=== PATIENT | male | born 1950 | race Hispanic/Latino ===

== ENCOUNTER 2017-03-28 22:16 | Emergency (ER) | payer MEDICARE ==
[~2017-03-28] VITALS: Ht 182.9 cm; Wt 95.6 kg
[~2017-03-28 22:16] MED LIST: NAPROSYN500 MG OR
[2017-03-28 23:17] LABS: HEMATOCRIT 42.4 % (39.0-50.0); HEMOGLOBIN 14.7 g/dl (14.0-18.0); IMMATURE GRANULOCYTES 0.7 % (0.0-1.0); MEAN CELL VOLUME 92.8 fL CALC (80.0-100.0); MEAN CORPUSCULAR HGB 32.2 pG CALC (26.0-32.0); MEAN CORPUSCULAR HGB CONC 34.7 g/L CALC (32.0-36.0); NEUT# 4.66 thou/uL (1.82-7.42); RED BLOOD COUNT 4.57 mill/uL (4.70-6.10)
[2017-03-28 23:35] LABS: ALBUMIN 4.1 g/dL (3.2-5.0); ALKALINE PHOSPHATASE 128 u/l (38-126); ANION GAP 14 (6-22 (CALC)); BILIRUBIN, TOTAL 0.5 mg/dL (0.0-1.4); BUN 21 mg/dL (8-23); BUN/CREATININE RATIO 16 (12-20 (CALC)); CALCIUM 9.4 mg/dL (8.4-10.2); CARBON DIOXIDE 29 mmol/l (22-30); CHLORIDE 100 mmol/l (95-108); CREATININE 1.3 mg/dL (0.7-1.3); GFR 55 ML/MIN (>=60 (CALC)); GFR FOR AFR.AMER. > 60 ML/MIN (>=60 (CALC)); GLUCOSE 343 mg/dL (82-115); POTASSIUM 4.6 mmol/l (3.5-5.1); SGOT/AST 36 u/l (19-48); SGPT/ALT 47 u/l (11-66); SODIUM 138 mmol/l (137-146); TOTAL PROTEIN 7.5 g/dL (6.3-8.2)
[2017-03-28 23:47] LABS: MYOGLOBIN 71 ng/mL (0 - 121)
[2017-03-29 00:39] LABS: URINE BILIRUBIN - DIPSTICK NEGATIVE (NEGATIVE); URINE BLOOD DIPSTICK NEGATIVE (NEGATIVE); URINE CLARITY CLEAR; URINE COLOR YELLOW; URINE GLUCOSE - DIPSTICK >=1000 mg/dL (NEGATIVE); URINE KETONE NEGATIVE (NEGATIVE); URINE LEUK ESTERASE NEGATIVE (NEGATIVE); URINE NITRITE - DIPSTICK NEGATIVE (Negative); URINE PROTEIN - DIPSTICK NEGATIVE (NEG-TRACE); URINE UROBILINOGEN - DIPSTICK 0.2 E.U./dL (0.2)
[2017-03-29 00:46] LABS: BARBITURATES NEGATIVE (NEGATIVE); COCAINE NEGATIVE (NEGATIVE); METHADONE NEGATIVE (NEGATIVE); OXCYCODONE NEGATIVE (NEGATIVE); TETRAHYDROCANNABIONOL NEGATIVE (NEGATIVE); TRICYLIC ANTIDEPRESSANTS NEGATIVE (NEGATIVE)
[2017-03-29] MEDS ORDERED: ANTIVERT PO (00:48)
[2017-03-29] MEDS ORDERED: ZOFRAN ODT4 MG PO (00:48)
[2017-03-29 01:12] VITALS: BP 165/70
== END 2017-03-29 01:16 | disposition home or self-care (01) ==
LOC: ED 22:16
PROVIDERS: Emergency Medicine
DX: R42 Dizziness and giddiness (principal); R51 Headache; I10 Essential (primary) hypertension

== ENCOUNTER 2019-10-22 09:11 | Day surgery (SDC) | payer MEDICARE ==
[~2019-10-22] VITALS: Ht 175.3 cm; Wt 97.5 kg
[~2019-10-22 09:11] MED LIST changes: +ANTIVERT PO; +ASPIRIN81 MG PO; +LEVOTHYROXIN150 MCG PO; +LIPITOR20 M1 PO; +LISINOPRIL10 MG PO; +LISINOPRIL20 MG PO; +METFORMIN500 MG PO; +MIRALAX3350 NF PO; +NOVOLOG100 UNIT/M SC; +TRESIBA FL100 UNIT/M SC; +ZOFRAN ODT4 MG PO
[2019-10-22 12:01] VITALS: BP 152/75
== END 2019-10-22 12:15 | disposition home or self-care (01) ==
LOC: ENDO 09:11 → ORM 11:30 → ENDO 12:15
PROVIDERS: ATTEND Surgery
PROC: 0DBE8ZX Excision of Large Intestine, Via Natural or Artificial Opening Endoscopic, Diagnostic (ICD-10-PCS; principal; 2019-10-22)
DX: K59.00 Constipation, unspecified (principal); R14.0 Abdominal distension (gaseous); Z86.010 Personal history of colon polyps

== ENCOUNTER 2019-12-06 | Day surgery (SDC) | payer MEDICARE ==
[2019-12-06] MEDS ORDERED: PERCOCET1 TA4 PO (09:15)
== END 2019-12-06 10:08 ==
PROC: 0VTTXZZ Resection of Prepuce, External Approach (ICD-10-PCS; principal; 2019-12-06)
DX: N47.1 Phimosis (principal); N48.1 Balanitis; I10 Essential (primary) hypertension; E78.5 Hyperlipidemia, unspecified; E11.9 Type 2 diabetes mellitus without complications
CPT/HCPCS: J0131; J1100

== ENCOUNTER 2019-12-14 17:54 | Emergency (ER) | payer MEDICARE ==
[~2019-12-14 17:54] MED LIST changes: +PERCOCET1 TA4 PO
[2019-12-14] MEDS ORDERED: KEFLEX500 M1 PO (18:41)
[2019-12-14 18:52] VITALS: BP 168/80
== END 2019-12-14 18:52 | disposition home or self-care (01) ==
LOC: ED 17:54
DX: I10 Essential (primary) hypertension (principal); T81.41XA Infection following a procedure, superficial incisional surgical site, initial encounter; E11.9 Type 2 diabetes mellitus without complications; Y83.8 Other surgical procedures as the cause of abnormal reaction of the patient, or of later complication, without mention of misadventure at the time of the procedure

== ENCOUNTER 2020-05-04 10:44 | Emergency (ER) | payer MEDICARE ==
[~2020-05-04 10:44] MED LIST changes: +KEFLEX500 M1 PO
[2020-05-04 11:32] LABS: HEMATOCRIT 41.3 % (39.0-50.0); HEMOGLOBIN 14.2 g/dl (14.0-18.0); IMMATURE GRANULOCYTES 0.6 % (0.0-5.0); MEAN CELL VOLUME 90.8 fL CALC (80.0-100.0); MEAN CORPUSCULAR HGB 31.2 pG CALC (26.0-32.0); MEAN CORPUSCULAR HGB CONC 34.4 g/dL CAL (32.0-36.0); NEUT# 6.21 thou/uL (1.82-7.42); RED BLOOD COUNT 4.55 mill/uL (4.70-6.10); RED CELL DISTRI WIDTH 13.2 % (11.5-15.5)
[2020-05-04 11:46] LABS: ALBUMIN 4.3 g/dL (3.2-5.0); ALKALINE PHOSPHATASE 96 u/l (38-126); ANION GAP 15 (6-22 (CALC)); BILIRUBIN, TOTAL 0.7 mg/dL (0.0-1.4); BUN 20 mg/dL (8-23); BUN/CREATININE RATIO 22 (12-20 (CALC)); CARBON DIOXIDE 25 mmol/l (22-30); CHLORIDE 103 mmol/l (95-108); CREATININE 0.9 mg/dL (0.7-1.3); GFR > 60 ML/MIN (>=60 (CALC)); GFR FOR AFR.AMER. > 60 ML/MIN (>=60 (CALC)); POTASSIUM 4.7 mmol/l (3.5-5.1); SGOT/AST 36 u/l (19-48); SODIUM 137 mmol/l (137-146); TOTAL PROTEIN 7.3 g/dL (6.3-8.2)
[2020-05-04 12:07] LABS: ACT PARTIAL THROMBO TIME 30.8 SECONDS (20.0-32.5); PROTHROMBIN TIME 10.5 SECONDS (9.0-12.5)
[2020-05-04 14:30] VITALS: BP 150/81
== END 2020-05-04 14:30 ==
LOC: ED 10:44
DX: S62.614B Displaced fracture of proximal phalanx of right ring finger, initial encounter for open fracture (principal); S61.216A Laceration without foreign body of right little finger without damage to nail, initial encounter; I10 Essential (primary) hypertension; E11.9 Type 2 diabetes mellitus without complications; W20.8XXA Other cause of strike by thrown, projected or falling object, initial encounter; Y92.009 Unspecified place in unspecified non-institutional (private) residence as the place of occurrence of the external cause; Z79.4 Long term (current) use of insulin

== ENCOUNTER 2020-07-31 09:55 | Emergency (ER) | payer MEDICARE ==
[~2020-07-31] VITALS: Ht 175.3 cm; Wt 80.0 kg
[2020-07-31 10:17] LABS: HEMOGLOBIN 14.9 g/dl (14.0-18.0); IMMATURE GRANULOCYTES 0.6 % (0.0-5.0); MEAN CELL VOLUME 93.1 fL CALC (80.0-100.0); MEAN CORPUSCULAR HGB 30.2 pG CALC (26.0-32.0); MEAN CORPUSCULAR HGB CONC 32.4 g/dL CAL (32.0-36.0); NEUT# 6.45 thou/uL (1.82-7.42); RED BLOOD COUNT 4.94 mill/uL (4.70-6.10); RED CELL DISTRI WIDTH 12.8 % (11.5-15.5)
[2020-07-31 10:29] LABS: ALBUMIN 4.7 g/dL (3.2-5.0); ALKALINE PHOSPHATASE 102 u/l (38-126); ANION GAP 17 (6-22 (CALC)); BILIRUBIN, TOTAL 0.7 mg/dL (0.0-1.4); BUN 24 mg/dL (8-23); BUN/CREATININE RATIO 27 (12-20 (CALC)); CARBON DIOXIDE 25 mmol/l (22-30); CHLORIDE 98 mmol/l (95-108); CREATININE 0.9 mg/dL (0.7-1.3); GFR > 60 ML/MIN (>=60 (CALC)); GFR FOR AFR.AMER. > 60 ML/MIN (>=60 (CALC)); POTASSIUM 4.7 mmol/l (3.5-5.1); SGOT/AST 33 u/l (19-48); SODIUM 135 mmol/l (137-146); TOTAL PROTEIN 7.7 g/dL (6.3-8.2)
[2020-07-31 10:35] LABS: PROTHROMBIN TIME 10.1 SECONDS (9.0-12.5)
[2020-07-31 10:43] LABS: MYOGLOBIN 58 ng/mL (0 - 121)
[2020-07-31 10:51] VITALS: BP 126/69
== END 2020-07-31 10:51 | disposition short-term general hospital (02) ==
LOC: ED 09:55
PROVIDERS: Student in an Organized Health Care Education/Training Program
DX: I21.3 ST elevation (STEMI) myocardial infarction of unspecified site (principal); I10 Essential (primary) hypertension; E11.9 Type 2 diabetes mellitus without complications; E78.5 Hyperlipidemia, unspecified; Z86.73 Personal history of transient ischemic attack (TIA), and cerebral infarction without residual deficits; Z79.4 Long term (current) use of insulin

== ENCOUNTER 2024-11-14 12:27 | Observation (INO) | payer MEDICARE ==
[2024-11-14] VITALS (20 sets, daily range): BP systolic 126–189; BP diastolic 56–135
[~2024-11-14] VITALS: Ht 177.8 cm; Wt 83.3 kg
[~2024-11-14 12:27] MED LIST changes: +ALLOPURINOL200 MG PO; +BRILINTA90 MG PO; +CARVEDILOL12.5 MG PO; +JARDIANCE25 MG; +MOUNJARO2.5 MG; +REPAGLINIDE2 MG
[2024-11-14] MEDS ORDERED: ASPIRIN 81 MG/TAB PO ONE (12:35)
[2024-11-14 12:48] LABS: BASO% 0.2 % (0-3); EOS% 1.6 % (0-8); HEMATOCRIT 44.8 % (39.0-50.0); HEMOGLOBIN 14.8 g/dl (14.0-18.0); IMMATURE GRANULOCYTES 0.4 % (0.0-5.0); LYMPH% 14.1 % (15-41); MEAN CELL VOLUME 96.8 fL CALC (80.0-100.0); NEUT# 8.52 thou/uL (1.82-7.42); NEUT% 76.7 % (42-76); RED BLOOD COUNT 4.63 mill/uL (4.70-6.10)
--- NOTE | 2024-11-14 12:48 | NUR ---
PT AMBULATED TO ROOM 15 IN STABLE CONDITION.
--- NOTE | 2024-11-14 13:15 | NUR ---
PT advised of wait time/results-denies c/o c/p.
[2024-11-14 13:17] LABS: ALBUMIN 4.5 g/dL (3.2-5.0); ALKALINE PHOSPHATASE 118 u/l (38-126); BUN 26 mg/dL (8-23); BUN/CREATININE RATIO 23 (12-20 (CALC)); CARBON DIOXIDE 31 mmol/l (22-30); CHLORIDE 102 mmol/l (95-108); CREATININE 1.1 mg/dL (0.7-1.3); ESTIMATED GFR 71 ML/MIN (>=90 (CALC)); SGOT/AST 39 u/l (19-48); SODIUM 142 mmol/l (137-146); TOTAL PROTEIN 7.6 g/dL (6.3-8.2)
[2024-11-14 13:19] LABS: ANION GAP 14 (6-22 (CALC)); BILIRUBIN, TOTAL 0.9 mg/dL (0.2-1.3); POTASSIUM 5.2 mmol/l (3.5-5.1)
--- NOTE | 2024-11-14 14:30 | NUR ---
PT DENIES SOB/C/P AT PRESENT TIME.
[2024-11-14] MEDS ORDERED: MAGNESIUM HYDROXIDE 30 ML UDC PO PRN (16:00)
[2024-11-14] MEDS ORDERED: ACETAMINOPHEN 325 MG/TAB PO PRN (16:00)
[2024-11-14] MEDS ORDERED: FUROSEMIDE 40 MG/4 ML SDV IV ONE (16:05)
[2024-11-14] MEDS ORDERED: DEXTROSE 250 ML IV PRN (16:20)
--- NOTE | 2024-11-14 16:35 | NUR ---
PT ARRIVED TO THE UNIT VIA [employer] AND WAS ABLE TO AMBULATE INDEPENENDENTLY TO THE BED.
--- NOTE | 2024-11-14 16:41 | NUR ---
PT IS AOX4, RESPIRATIONS ARE EVEN AND UNLABORED, LUNGS ARE CLEAR, BOWEL SOUNDS ARE ACTIVE, PEDAL PULSES ARE PALPABLE TO TOUCH, PT DENIES PAIN AT THIS TIME.
--- NOTE | 2024-11-14 16:54 | NUR ---
patient glucose level is 108.
[2024-11-14] MEDS ORDERED: INSULIN LISPRO 100 UNITS/ML ML SC SCH (17:00)
--- NOTE | 2024-11-14 17:05 | NUR ---
CALL PLACED TO [facility] TO NOTIFY PT'S BP AT 1748 WAS 187/77 IN THE RIGHT ARM AND 185/88 HR 57 IN THE LEFT ARM. TELEPHONE ORDER TAKEN FOR A ONE TIME DOES OF IV 10MG HYDRALAZONE.
[2024-11-14] MEDS ORDERED: hydrALAZINE HCL 20 MG/ML VIAL(1 ML) IV SCH (17:50)
--- NOTE | 2024-11-14 19:20 | NUR ---
PATIENT OBSERVED RESTING IN BED. ALERT AND ORIENTED. ABLE TO MAKE NEEDS KNOWN. ASSESSMENT COMPLETE. NO DISTRESS NOTED. NO COMPLAINTS OF CHEST PAIN. DENIES NEEDING ANYTHING AT THIS TIME. BED REMAINS IN LOW POSITION. CALL LEE AND BELONGINGS IN REACH.
[2024-11-14 20:03] LABS: URINE BILIRUBIN - DIPSTICK Negative (NEGATIVE); URINE BLOOD DIPSTICK Negative (NEGATIVE); URINE GLUCOSE - DIPSTICK 500 mg/dL (NEGATIVE); URINE KETONE Negative (NEGATIVE); URINE LEUK ESTERASE Negative (NEGATIVE); URINE NITRITE - DIPSTICK Negative (Negative); URINE PROTEIN - DIPSTICK Negative (NEG-TRACE); URINE UROBILINOGEN - DIPSTICK 0.2 E.U./dL (0.2)
[2024-11-14 20:04] LABS: URINE COLOR Straw
[2024-11-14] MEDS ORDERED: ATORVASTATIN CALCIUM 40 MG/TAB PO SCH (21:00)
[2024-11-14] MEDS ORDERED: ENOXAPARIN SODIUM 40 MG/0.4 ML SYR SC SCH (21:00)
[2024-11-14] MEDS ORDERED: metFORMIN HYDROCHLORIDE 500 MG/TAB PO SCH (21:00)
[2024-11-14] MEDS ORDERED: amLODIPine BESYLATE 5 MG/TAB PO SCH (21:55)
--- NOTE | 2024-11-14 23:45 | NUR ---
PATIENT REMAINS RESTING IN BED. NO COMPLAINTS OF CHEST PAIN. DENIES NEEDING ANYTHING AT THIS TIME. BED REMAINS IN LOW POSITION. CALL LEE IN REACH.
[2024-11-15 02:50] LABS: BASO% 0.2 % (0-3); HEMATOCRIT 45.1 % (39.0-50.0); HEMOGLOBIN 15.1 g/dl (14.0-18.0); IMMATURE GRANULOCYTES 0.2 % (0.0-5.0); LYMPH% 19.6 % (15-41); MEAN CELL VOLUME 95.6 fL CALC (80.0-100.0); MEAN CORPUSCULAR HGB CONC 33.5 g/dL CAL (32.0-36.0); MONO% 8.5 % (2-13); NEUT# 6.1 thou/uL (1.82-7.42); NEUT% 69.5 % (42-76); RED BLOOD COUNT 4.72 mill/uL (4.70-6.10); RED CELL DISTRI WIDTH 13.1 % (11.5-15.5)
[2024-11-15 03:04] LABS: ALBUMIN 4.3 g/dL (3.2-5.0); BILIRUBIN, TOTAL 0.6 mg/dL (0.2-1.3); CREATININE 0.9 mg/dL (0.7-1.3); MAGNESIUM 2.2 mg/dL (1.6-2.3); TOTAL PROTEIN 7.1 g/dL (6.3-8.2)
[2024-11-15 03:12] LABS: POTASSIUM 4.1 mmol/l (3.5-5.1)
[2024-11-15 04:00] VITALS: BP 139/66
--- NOTE | 2024-11-15 04:08 | NUR ---
PATIENT WENT DOWN TO XRAY VIA WC.STABLE.
--- NOTE | 2024-11-15 04:16 | NUR ---
PATIENT RETURNED TO [facility] FROM XRAY. STABLE CONDITION.
[2024-11-15 04:19] VITALS: BP 139/66
--- NOTE | 2024-11-15 07:08 | NUR ---
Pt consented to receive pneumococcal vaccination, however received PCV13 May 2020 and PPSV23 Jul 2013. Re-vaccination not indicated until >/=5 years after last pneumococcal vaccination. No orders profiled for pneumococcal vaccination.
--- NOTE | 2024-11-15 07:28 | NUR ---
PATIENT LYING IN BED WITH PILLOW COVERING EYES. BREATHING UNLABORED ON ROOM AIR. TELE INTACT. IV IN LAC SL;SITE CLEAN AND INTACT. PT DENIES ANY PAIN OR N/D/V AT THIS TIME. BED IN LOWEST POSITION. ASSESSMENT COMPLETED. PERSONAL ITEMS WELL CALL LIGHT WITHIN REACH;PT VERBALIZED UNDERSTANDING OF USE. NO OTHER NEEDS AT THIS TIME. POC ONGOING.
[2024-11-15] MEDS ORDERED: CLOPIDOGREL BISULFATE 75 MG/TAB TAB PO SCH (09:00)
[2024-11-15] MEDS ORDERED: LISINOPRIL 20 MG/TAB PO SCH (09:00)
[2024-11-15] MEDS ORDERED: LISINOPRIL 10 MG/TAB PO SCH (09:00)
[2024-11-15] MEDS ORDERED: ASPIRIN EC 81 MG/TAB PO SCH (09:00)
[2024-11-15] MEDS ORDERED: LASIX20 MG PO (09:56)
[2024-11-15] MEDS ORDERED: NITROSTAT0.4 MG SL (09:57)
[2024-11-15 10:27] VITALS: BP 136/67
--- NOTE | 2024-11-15 12:12 | NUR ---
Discharge instructions given. Patient verbalizes understanding of same. Discharged in stable condition via Ambulatory to Home with staff. All belongings sent with pt. Tele #1 removed and placed in bin at nursing station.
--- NOTE | 2024-11-21 11:27 | NUR ---
Discharge follow up call completed 11/21/24. Patient states he is doing better. He is taking prescribed medication as directed and has a follow up appointment with his technical support specialist on 12/10/23. No needs or concerns verbalized at this time.
== END 2024-11-15 12:13 | disposition home or self-care (01) ==
LOC: ED 12:27 → ED-I 15:07 → ED 15:52 → MS2 15:53
PROVIDERS: Nurse Practitioner; Nurse Practitioner Family; ADMIT Internal Medicine; ATTEND Internal Medicine
DX: R07.9 Chest pain, unspecified (principal); R06.02 Shortness of breath; I11.0 Hypertensive heart disease with heart failure; I50.9 Heart failure, unspecified; E11.9 Type 2 diabetes mellitus without complications; I25.10 Atherosclerotic heart disease of native coronary artery without angina pectoris; E78.5 Hyperlipidemia, unspecified; E03.9 Hypothyroidism, unspecified; Z95.5 Presence of coronary angioplasty implant and graft; Z79.4 Long term (current) use of insulin; Z79.85 Long-term (current) use of injectable non-insulin antidiabetic drugs; Z79.84 Long term (current) use of oral hypoglycemic drugs; Z86.73 Personal history of transient ischemic attack (TIA), and cerebral infarction without residual deficits
CPT/HCPCS: J0360; J1815; J1940